=== PATIENT | female | born 1960 | race Caucasian/White ===

== ENCOUNTER 2021-07-18 19:00 | Emergency (ER) | payer OTHER ==
[~2021-07-18] VITALS: Ht 165.1 cm; Wt 59.0 kg
[2021-07-18] MEDS ORDERED: Cyclobenzaprine5 MG PO (19:44)
== END 2021-07-18 19:50 | disposition home or self-care (01) ==
LOC: ER 19:00
DX: M79.18 Myalgia, other site (principal); Z88.5 Allergy status to narcotic agent; Z88.7 Allergy status to serum and vaccine
CPT/HCPCS: 99282

== ENCOUNTER 2021-08-09 18:44 | Emergency (ER) | payer OTHER ==
[~2021-08-09] VITALS: Ht 165.1 cm; Wt 59.0 kg
[~2021-08-09 18:44] MED LIST: Cyclobenzaprine5 MG PO
== END 2021-08-09 19:40 | disposition home or self-care (01) ==
LOC: ER 18:44
DX: S80.02XA Contusion of left knee, initial encounter (principal); Z88.5 Allergy status to narcotic agent; Z88.7 Allergy status to serum and vaccine; W01.0XXA Fall on same level from slipping, tripping and stumbling without subsequent striking against object, initial encounter
CPT/HCPCS: 73564; 99283-25